=== PATIENT | male | born 1975 | race Caucasian/White ===

== ENCOUNTER 2016-12-22 14:36 | Outpatient (CLI) ==
[2016-10-15 16:04] VITALS: BMI 36.9
--- NOTE | 2016-12-22 16:10 | DI ---
EXAM: CHEST FRONTAL AND LATERAL VIEWS HISTORY: Acute bronchitis. COMPARISON: None FINDINGS: Heart size and mediastinal contour within normal limits. No acute infiltrates. Tiffani l vascularity with no pleural fluid or pneumothorax. The bony thorax has no acute finding. IMPRESSION: No acute process.
== END 2016-12-22 14:37 | disposition home or self-care (01) ==
LOC: RAD 14:36
PROVIDERS: ATTEND Internal Medicine
DX: J20.9 Acute bronchitis, unspecified (principal)

== ENCOUNTER 2017-10-31 13:30 | Outpatient (CLI) ==
[2016-10-15 16:04] VITALS: BMI 36.9
--- NOTE | 2017-10-31 14:21 | DI ---
EXAM: LEFT KNEE. HISTORY: Left knee pain FINDINGS / IMPRESSION: Left knee four view. No comparison. The joints appear normal. No osteoarthritis or joint effusion. There is chronic fragmentation/ irregularity of the anterior tibial tuberosity. This could be sympto matic. Soft tissues were within normal limits.
== END 2017-10-31 13:31 | disposition home or self-care (01) ==
LOC: RAD 13:30
PROVIDERS: ATTEND Internal Medicine
DX: M25.562 Pain in left knee (principal)

== ENCOUNTER 2017-11-23 09:00 | Outpatient (CLI) ==
[2016-10-15 16:04] VITALS: BMI 36.9
--- NOTE | 2017-11-23 12:04 | MRI ---
EXAM: MRI of the left knee without contrast COMPARISON: Left knee radiographs 10/31/2017. HISTORY: Left knee pain with clinical concern for a torn meniscus. TECHNIQUE: Multiplanar noncontrast MR images of the left knee were acquired using a 1.2 Calli magnet . FINDINGS: The medial meniscus is intact. There is some intrasubstance degeneration of the lateral m eniscus with question of minimal degenerative fraying of the free edge of the posterior horn. The me niscus is otherwise intact without a discrete surfacing tear. Thinning of the anterior cruciate ligament which may represent anatomic variation versus sequela of a chronic sprain/partial tear with some residual intact fibers clearly identified. No abnormal transl ation of the tibia relative to the femur. The posterior cruciate ligaments intact. Mild thickening and scarring medial collateral ligament its femoral attachment. The lateral collateral ligament comp ziyad and posterolateral corner ligaments are intact. Marked diffuse patellar tendinosis which is most focused proximally at the patellar attachment without a full-thickness tendon tear. Hypertrophic delonte earance of the tibial tuberosity with well corticated ossification at that site suggesting chronic se quela of Dyer-Schlatter's disease versus sequela of an old avulsion injury. Mild distal quadriceps tendinosis. No significant subluxation of the patella. There is chondromalacia patella. Minimal thinning of the cartilage in the medial compartment. No ev idence of an acute fracture or osteomyelitis. Small joint effusion which is nonspecific. No poplite al cyst or osteochondral body. IMPRESSION: 1. Intrasubstance degeneration of the lateral meniscus with question of minimal degenerative fraying of the free edge. No surfacing meniscal tear. 2. Marked patellar tendinosis without a full-thickness tendon tear or tendon retraction. Mild quadr iceps tendinosis. Hypertrophic appearance and well corticated ossification of the tibial tuberosity which may represent chronic sequela of adhesive capsulitis versus sequela of an old avulsion injury. 3. Mild medial and patellofemoral compartment osteoarthrosis. 4. Small joint effusion. 5. Thinning of the anterior cruciate ligament which may represent normal anatomic variation versus s equela of a chronic sprain/partial tear with intact ligament fibers clearly identified. Correlate wi th physical examination. Chronic sprain with scarring of the medial collateral ligament.
== END 2017-11-23 09:01 | disposition home or self-care (01) ==
LOC: RAD 09:00
PROVIDERS: ATTEND Internal Medicine
DX: M25.562 Pain in left knee (principal)

== ENCOUNTER 2019-02-12 11:00 | Outpatient (RCR) ==
[2016-10-15 16:04] VITALS: BMI 36.9
--- NOTE | 2019-02-05 09:04 | RS.OPPTEV2 ---
Date of Note: 02/02/19 Visit #: 1 Number of visits approved by Insurance: eval + 6 visits Date of Evaluation: 02/02/19 Payer Source: Workman's Comp Date of Onset/Injury/Change in Status: 11/29/17 Surgery Performed?: Yes (Peroneal tendon repair) Date of Procedure: 12/04/18 Treatment Diagnosis: peroneal tendon tear L LE, L ankle pain, joint stiffness History of Condition/Mechanism of Injury:: pt slipped on ice while working and suffered an injury to L ankle on 11/29/17 Was later diagnosed with L peroneal tendon tear. pt underwent L peroneal tendon repair on 12/04/18. pt has been off work since October 2018. Prior Level of Function.....Patient was independent with: ADL's, Self Care, Work /Vocation, Ambulation/Mobility, Community Integration/Access Level of Function: Prior to injury was independent. 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 Functional Limitations: Sleep, Standing, Squatting, Ambulation, Community Access /Integration Current Subjective/complaints:: pt states the MD states that he can gradually work out of wearing the boot and use a lace up brace in his shoe when he feels he is ready. pt states he doesn't feel he is quite ready to try going without the boot. Treatment Side (optional): Left *Precautions: WBAT LLE, no u/s at base of 5th MTP due to metal anchor Medical History Medical History Comments:: GERD, BPH, depression, Surgical History: Lumbar Spine, Tonsillectomy Smoking Status: Never smoker Hx Home Medications: protonix, trilipix, lipitor, zoloft, norco Patient's Goals: decrease pain L ankle and return to work. Pain Assessment - Pain Description Pain Location: L ankle Pain Description: Aching Current Pain Intensity: 4 Other Comments regarding Pain:: pt also c/o back pain since wearing the boot, pt with 6/10 low back pain Functional Outcome Measure LE Functional Scale: 35 - G Codes & Severity Modifier G Codes & Modifier: n/a Source of G Code score: n/a Observation - Observation Inspection: pt noted to have pronation B feet in standing with L worse than R. Incision intact with no open areas or exudate. pt with min erythema with edema noted distal and posterior to incision. Posture: Forward Head, Rounded Shoulders, Decreased Lumbar Lordosis Girth Measurement Lower: L ankle 26cm, forefoot 27.5cm, 10 cm above ankle 27 cm. R ankle 27.6cm, forefoot 27.8cm, 10 cm above 26.5cm Gait - Gait Pattern General Gait Pattern Observation: Antalgic Gait Gait Comments: pt amb without AD with antalgic gait pattern. pt with decreased stance time on LLE. General Range of Motion: BUE WFL's. RLE WFL's. LLE hip and knee WFL's Muscle Strength: BUE 5/5. RLE 5/5. LLE hip flex 5/5, knee flex/ext 4+/5, Ankle ROM: Right WFL's Ankle Muscle Strength: Right WFL's - Left Ankle ROM Left DF with Knee extension: neutral AA Left Plantar Flexion: 36 Left Eversion: 22 Left Inversion: 38 Left Ankle/Foot ROM Limitations: Soft Tissue Tightness, Muscle Weakness, Pain Comments: pt c/o increased pain with ROM. Worse with Inversion/eversion. - Left Ankle Strength Left Dorsiflexion: 3- Fair- Left Plantar flexion: 3- Fair- Left Eversion: 3- Fair- Left Inversion: 3- Fair- Palpation Palpation Findings: Tenderness Comments:: tenderness noted to palpation over area of incision. Sensation - Sensation Right Upper Extremity: Intact/Normal Left Upper Extremity: Intact/Normal Right Lower Extremity: Intact/Normal Left Lower Extremity: Intact/Normal Balance - Sitting Balance Static Sitting Balance: Normal Dynamic Sitting Balance: Normal - Standing Balance Static Standing Balance: Normal Dynamic Standing Balance: Good - Treatment Modality: Ultrasound Parameters/Method Applied: 1.2 w/cm2 x 8 mins Treatment Area: L lat ankle (not in area of 5th metatarsal) Patient Position: Supine Interventions - Exercise/Activities/Manual Therapy Exercises/Activities: pt received gentle AAROM stretching to L ankle as well as performed isometric L ankle DF, PF, inversion, eversion. pt also received retrograde massage to L ankle to decrease edema and decrease scar tissue. Manual Therapy: n/a HOME EXERCISE PROGRAM: pt given written HEP including isometric ankle DF, PF, Inversion, Eversion, gentle towel stretch, - Charges Timed Code Treatment Minutes: 51 Total Treatment Time: 59 Procedures billed for this date of service:: evrosibel grijalva, ex EVALUATION COMPLEXITY LEVEL EVALUATION COMPLEXITY LEVEL: HISTORY: Low, EXAM OF BODY SYSTEMS: Low, CLINICAL PRESENTATION: Low, CLINICAL DECISION MAKING: Low Assessment Assessment: pt presents with L ankle pain with decreased ROM, strength, edema, as well as decreased gait sequencing. pt also with low back pain and muscle guarding. Feel pt will benefit from skilled PT eval for therex for ROM, strengthening, as well as modalities to decrease edema and pain. Patient Education: Home Exercise Program, Education of Plan of Care Rehab Potential: Good Short Term Goals Goal #1: pt independent with initial HEP Goal to be met by: 02/13/19 Goal #2: Pt with decreased pain to < 4/10 Goal to be met by: 02/13/19 Goal #3: Improve ROM L ankle DF 8 PF 38, [id number] Goal to be met by: 02/13/19 Goal #4: Decrease edema L ankle. Goal to be met by: 02/13/19 Long-Term Goals Goal #1: pt report able to amb without walking boot with lace up brace and reg shoe Goal to be met by: 02/23/19 Goal #2: pt report able to perform normal daily activities with less pain Goal to be met by: 02/23/19 Goal #3: ROM L ankle improved to be able to amb with normal heel strike/toe off Goal to be met by: 02/23/19 Goal #4: Improve strength L ankle 4- to 4/5 Goal to be met by: 02/23/19 Plan - Treatment to be Provided Procedures: Therapeutic Exercises, Therapeutic Activity, Manual Therapy, Massage , Patient Education Modalities: Electrical Stimulation, Ultrasound/Phonophoresis, Cryotherapy, Hot Packs - Treatment Plan Frequency: 2 X week Duration: 3 weeks Dates of [place] Goals: 02/23/19 Expiration date of current Insurance Approval:: approved eval +6 visits - Treatment Code (1) Left ankle pain Code(s): M25.572 - PAIN IN LEFT ANKLE AND JOINTS OF LEFT FOOT Qualifiers: Chronicity: chronic Qualified Code(s): M25.572 - Pain in left ankle and joints of left foot; G89.29 - Other chronic pain (2) S/P peroneal tendon repair Code(s): Z98.890 - OTHER SPECIFIED POSTPROCEDURAL STATES (3) Stiffness of left ankle joint Code(s): M25.672 - STIFFNESS OF LEFT ANKLE, NOT ELSEWHERE CLASSIFIED (4) Effusion, left ankle Code(s): M25.472 - EFFUSION, LEFT ANKLE (5) Muscle weakness Code(s): M62.81 - MUSCLE WEAKNESS (GENERALIZED)
--- NOTE | 2019-02-05 16:44 | RS.OPPTDN ---
Subjective Date of Note: 02/05/19 Visit #: 2 Number of visits approved by Insurance: na Date of Evaluation: 02/02/19 Payer Source: Workman's Comp Treatment Diagnosis: peroneal tendon tear L LE, L ankle pain, joint stiffness Current Subjective/complaints:: Patient says it is hard to WB on his R foot being out of the boot. He says he is comfortable with wearing the lace up support around his home, but wants to wear boot in public. He says he continues to notice small pocket of swelling and incisional area is sensitive and tender. He is working on HEP. *Precautions: WBAT LLE, no u/s at base of 5th MTP due to metal anchor Pain Assessment - Pain Description Pain Location: R posterior and distal incision also to distal to lateral malleoli - Treatment Modality: Ultrasound Parameters/Method Applied: continuous @ 1.2 w/cm2 x 5 mins to the posterior incisional area (away from metal), pulsed @ 20% 0.6 w/cm2 x 6 mins to area of swelling (inferior to lateral malleoli) and to the anterior incision or distal portion of the foot Patient Position: Supine - Heat/Cryotherapy Treatment: Cryotherapy (wrapped around the R lateral ankle x 15 mins after therex) Interventions - Exercise/Activities/Manual Therapy Exercises/Activities: pt received gentle AAROM/PROM stretching to L ankle as well as performed isometric L ankle DF, PF, inversion, 2x5. AROM followed in all directions. Total minutes of Exercise: 8 Manual Therapy: Patient received cross friction massage to incision and retrograde massage for swelling Total minutes of Manual Therapy: 8 HOME EXERCISE PROGRAM: pt given written HEP including isometric ankle DF, PF, Inversion, Eversion, gentle towel stretch, - Charges Timed Code Treatment Minutes: 27 Total Treatment Time: 42 Procedures billed for this date of service:: cp, MT, EX, U/s Assessment: Patient has mild tenderness noted along the incision temporarily during u/s. He was surprised that he did not have the discomfort he anticipated with scar tissue massage however. He appeared to geraldine PROM/AAROM better than expected. Swelling decreased slightly with MT and cryotherpay. He should improve with further visits modalities and therex to improve pain, swelling, and ROM. Patient Education: Education of diagnosis, Body/Joint mechanics, Home Exercise Program, Home Safety, Education of Plan of Care Patient demonstrates compliance with HEP?: Yes Short Term Goals Goal #1: pt independent with initial HEP Goal to be met by: 02/13/19 Progress towards Goal:: Progressing Goal #2: Pt with decreased pain to < 4/10 Goal to be met by: 02/13/19 Goal #3: Improve ROM L ankle DF 8 PF 38, [id number] Goal to be met by: 02/13/19 Goal #4: Decrease edema L ankle. Goal to be met by: 02/13/19 Desulfurizer Hand Goals Goal #1: pt report able to amb without walking boot with lace up brace and reg shoe Goal to be met by: 02/23/19 Goal #2: pt report able to perform normal daily activities with less pain Goal to be met by: 02/23/19 Goal #3: ROM L ankle improved to be able to amb with normal heel strike/toe off Goal to be met by: 02/23/19 Goal #4: Improve strength L ankle 4- to 4/5 Goal to be met by: 02/23/19 Plan Dates of Desulfurizer Hand Goals: 02/23/19 Expiration date of current Insurance Approval:: 02/23/19 PLAN: Patient to continue to improve ROM and wean off from boot, increasing WB to allow mor e normal gait pattern.
--- NOTE | 2019-02-07 15:29 | RS.OPPTDN ---
Subjective Date of Note: 02/07/19 Visit #: 3 Number of visits approved by Insurance: na Date of Evaluation: 02/02/19 Payer Source: Workman's Comp Treatment Diagnosis: peroneal tendon tear L LE, L ankle pain, joint stiffness *Precautions: WBAT LLE, no u/s at base of 5th MTP due to metal anchor - Treatment Modality: Ultrasound Parameters/Method Applied: Pulsed @ 0.6 w/cm2 x 12 mins to the L lateral malleoli (swelling pocket) region and along the incision Patient Position: Supine - Heat/Cryotherapy Treatment: Cryotherapy (surrounding the L lateral ankle x 12 mins) Interventions - Exercise/Activities/Manual Therapy Exercises/Activities: pt received gentle AAROM/PROM stretching to L ankle as well as performed isometric L ankle DF, PF, inversion, 2x5. AROM followed in all directions. Total minutes of Exercise: 6 Manual Therapy: Patient received cross friction massage to incision and retrograde massage for swelling Total minutes of Manual Therapy: 8 HOME EXERCISE PROGRAM: pt given written HEP including isometric ankle DF, PF, Inversion, Eversion, gentle towel stretch, - Charges Timed Code Treatment Minutes: 26 Total Treatment Time: 42 Procedures billed for this date of service:: cp, u/s, ex Assessment: Patient continues to demo swelling to just distal to the lateral malleoli, but decreased tenderness at incision. He appears to have improved ROM both A and P and able to resist well through isometrics. Decreased back pain noted through customer care agent earlier this week. Patient Education: Education of diagnosis, Home Exercise Program Patient demonstrates compliance with HEP?: Yes Short Term Goals Goal #1: pt independent with initial HEP Goal to be met by: 02/13/19 Progress towards Goal:: Progressing Goal #2: Pt with decreased pain to < 4/10 Goal to be met by: 02/13/19 Progress towards Goal:: Progressing Goal #3: Improve ROM L ankle DF 8 PF 38, [id number] Goal to be met by: 02/13/19 Progress towards Goal:: Progressing Goal #4: Decrease edema L ankle. Goal to be met by: 02/13/19 Skilled Nursing Goals Goal #1: pt report able to amb without walking boot with lace up brace and reg shoe Goal to be met by: 02/23/19 Goal #2: pt report able to perform normal daily activities with less pain Goal to be met by: 02/23/19 Goal #3: ROM L ankle improved to be able to amb with normal heel strike/toe off Goal to be met by: 02/23/19 Goal #4: Improve strength L ankle 4- to 4/5 Goal to be met by: 02/23/19 Plan Dates of Medical Assistant Per [employer] Goals: 02/23/19 Expiration date of current Insurance Approval:: 02/23/19 PLAN: Continue BIW to improve pain, ROM, and strength to the L ankle.
--- NOTE | 2019-02-12 15:03 | RS.OPPTDN ---
Subjective Date of Note: 02/12/19 Visit #: 4 Number of visits approved by Insurance: 7 Date of Evaluation: 02/02/19 Payer Source: Workman's Comp Treatment Diagnosis: peroneal tendon tear L LE, L ankle pain, joint stiffness Current Subjective/complaints:: Patient says he was able to discontinue wearing her boot last . States PA reported his ankle is healed and iit could improve his back pain. Amanuel states that with having the boot d/c'd and having a chiropractic adjustment seemed to improve his back pain. *Precautions: WBAT LLE, no u/s at base of 5th MTP due to metal anchor - Treatment Modality: Ultrasound Parameters/Method Applied: Pulsed @ 20% 0.6 w/cm2 x 10 mins to the lateral aspect just distal to the lateral malleoli and along incision. Patient Position: Supine - Heat/Cryotherapy Treatment: Cryotherapy (15 mins L ankle after therex) Interventions - Exercise/Activities/Manual Therapy Exercises/Activities: pt received progressive AAROM/PROM stretching to L ankle as well as performed isometric L ankle all directions, 2x5. Began red tband for all motions as well 2x10 reps. AROM followed in all directions. Sitting: EOB wobble board all directions with 5sec static holds each direction. Total minutes of Exercise: 24 Manual Therapy: na HOME EXERCISE PROGRAM: pt given written HEP including isometric ankle DF, PF, Inversion, Eversion, gentle towel stretch, - Charges Timed Code Treatment Minutes: 34 Total Treatment Time: 49 Procedures billed for this date of service:: cp, u/s, ex2 Assessment: Patient presents without boot and amb with good supportive athletic shoes. He appears to have near equal WBing. Decreased back pain noted through customer care representative and recently discontinuing the boot. He is able to geraldine increased ROM and resistive therex using red tband. Swelling has decreased generally through the ankle and forefoot by 1/4 to 1/2 cm per measurements and EV has increased only by 1 degree. DF is now 3-4 degrees beyond neutral with knee extended. Patient Education: Home Exercise Program, Home Safety, Education of Plan of Care Patient demonstrates compliance with HEP?: Yes Short Term Goals Goal #1: pt independent with initial HEP Goal to be met by: 02/13/19 Progress towards Goal:: Progressing Goal #2: Pt with decreased pain to < 4/10 Goal to be met by: 02/13/19 Progress towards Goal:: Progressing Goal #3: Improve ROM L ankle DF 8 PF 38, [id number] Goal to be met by: 02/13/19 Progress towards Goal:: Progressing Goal #4: Decrease edema L ankle. Goal to be met by: 02/13/19 Progress towards Goal:: Progressing Rail Car Unloader Goals Goal #1: pt report able to amb without walking boot with lace up brace and reg shoe Goal to be met by: 02/23/19 Progress towards goal: Partially Met (patient has discontinued boot last week per PA instructions) Goal #2: pt report able to perform normal daily activities with less pain Goal to be met by: 02/23/19 Goal #3: ROM L ankle improved to be able to amb with normal heel strike/toe off Goal to be met by: 02/23/19 Goal #4: Improve strength L ankle 4- to 4/5 Goal to be met by: 02/23/19 Plan Dates of Rail Car Unloader Goals: 02/23/19 Expiration date of current Insurance Approval:: 02/23/19 PLAN: Continue with progression of ROM and strength to the L ankle/foot
== END 2019-02-13 23:59 ==
PROVIDERS: ATTEND Orthopaedic Surgery
DX: S86.312D Strain of muscle(s) and tendon(s) of peroneal muscle group at lower leg level, left leg, subsequent encounter (principal); M25.572 Pain in left ankle and joints of left foot; G89.29 Other chronic pain; M25.672 Stiffness of left ankle, not elsewhere classified; M25.472 Effusion, left ankle; M62.81 Muscle weakness (generalized); Z98.890 Other specified postprocedural states

== ENCOUNTER 2019-03-15 13:00 | Outpatient (RCR) ==
[2016-10-15 16:04] VITALS: BMI 36.9
--- NOTE | 2019-02-14 15:56 | RS.OPPTDN ---
Subjective Date of Note: 02/14/19 Visit #: 5 Number of visits approved by Insurance: eval + 6 visits Date of Evaluation: 02/02/19 Payer Source: Workman's Comp Treatment Diagnosis: peroneal tendon tear L LE, L ankle pain, joint stiffness Current Subjective/complaints:: Patient says he has to drive to [place] for his MD appt tomorrow. He denies having any increase in symptoms due to additional therex last session. He says he wants to return to work, but knows he will not be able to stand and walk around for 8 hours. States he wants to ask his MD about obtaining an order to eval for his back due to walking around in his boot. *Precautions: WBAT LLE, no u/s at base of 5th MTP due to metal anchor - Treatment Modality: Ultrasound Parameters/Method Applied: Pulsed @ 20% 0.6 w/cm2 x 10 mins to the L lateral malleoli region and just distal to area of swelling Patient Position: Supine Interventions - Exercise/Activities/Manual Therapy Exercises/Activities: Patient begins with PROM and gentle stretching to the L foot all directions with more limitation in EV related to more discomfort. Manual isometrics all directions 2x5. Red tband all dir 2x10 reps. Wobble board for all directions x 10 reps. Began stationary bike moderate speed forward and reverse 2 mins ea. Total minutes of Exercise: 24 Manual Therapy: na HOME EXERCISE PROGRAM: pt given written HEP including isometric ankle DF, PF, Inversion, Eversion, gentle towel stretch, - Charges Timed Code Treatment Minutes: 36 Total Treatment Time: 36 Procedures billed for this date of service:: u/s, ex2 Assessment: Patient amb well with discontination of boot with relieving back pain and no provocation of L foot/ankle pain. He is progressing with ROM and edema reduction as he is advancing with tolerance to isometrics and beginning stationary bike. Patient encouraged to use ice at home for mild continued swelling and pain control as well as using it considering his [address] for MD visit. Patient Education: Education of diagnosis, Body/Joint mechanics, Home Exercise Program, Home Safety Patient demonstrates compliance with HEP?: Yes Short Term Goals Goal #1: pt independent with initial HEP Goal to be met by: 02/13/19 Progress towards Goal:: Progressing Goal #2: Pt with decreased pain to < 4/10 Goal to be met by: 02/13/19 Progress towards Goal:: Progressing Goal #3: Improve ROM L ankle DF 8 PF 38, [id number] Goal to be met by: 02/13/19 Progress towards Goal:: Progressing Goal #4: Decrease edema L ankle. Goal to be met by: 02/13/19 Progress towards Goal:: Progressing Half-Way Goals Goal #1: pt report able to amb without walking boot with lace up brace and reg shoe Goal to be met by: 02/23/19 Progress towards goal: Partially Met (patient has discontinued boot last week per PA instructions) Goal #2: pt report able to perform normal daily activities with less pain Goal to be met by: 02/23/19 Progress towards goal: Progressing Goal #3: ROM L ankle improved to be able to amb with normal heel strike/toe off Goal to be met by: 02/23/19 Progress towards goal: Progressing Goal #4: Improve strength L ankle 4- to 4/5 Goal to be met by: 02/23/19 Progress towards goal: Progressing Plan Dates of Half-Way Goals: 02/23/19 Expiration date of current Insurance Approval:: 02/23/19 PLAN: Patient has 2 more sessions remaining with current order. He will be returning to MD tomorrow for follow up. He plans to have his MD add eval and treat for his back related to his foot injury.
--- NOTE | 2019-02-19 14:37 | RS.OPPTDN ---
Subjective Date of Note: 02/19/19 Visit #: 6 Number of visits approved by Insurance: 7 Date of Evaluation: 02/02/19 Payer Source: Workman's Comp Treatment Diagnosis: peroneal tendon tear L LE, L ankle pain, joint stiffness Current Subjective/complaints:: Patient says he has gotten a good report from his ortho last week and indicating he has another order to continue. He states he is improving, but doesn't want to push therapy too much and return to work when he is not ready. States his incision is cloth washer back tender, but he is working on massage at home. *Precautions: WBAT LLE, no u/s at base of 5th MTP due to metal anchor - Treatment Modality: Ultrasound Parameters/Method Applied: Pulsed @ 20% @ 0.6 w/cm2 along incision and just distal to the the lateral malleoli x 11 mins Patient Position: Supine Interventions - Exercise/Activities/Manual Therapy Exercises/Activities: Patient begins with PROM and progressive stretching to the L foot all directions. EV more tolerable. Manual isometrics all directions 2x5. Progressed to green tband all dir 2x10 reps. Wobble board for all directions x 10 reps. Standing with sock and brace on for weight shifting for heel to toe on mahajan air pad, then shoes on for both feet on pad for weight shift L to R then heel to toe x 10 with holding onto bed. Total minutes of Exercise: 24 Manual Therapy: na HOME EXERCISE PROGRAM: pt given written HEP including isometric ankle DF, PF, Inversion, Eversion, gentle towel stretch, - Charges Timed Code Treatment Minutes: 35 Total Treatment Time: 35 Procedures billed for this date of service:: u/s, ex2 Assessment: Patient presents with new order to continue 2-3 x 4 weeks. He demo slightly less swelling at the L lateral malleoli area observably. He geraldine standing and amb better after discharging the boot. He is progressing slowly with ROM and strengthening, but to avoid increase in pain and return to work too early. Patient Education: Education of diagnosis, Home Exercise Program Patient demonstrates compliance with HEP?: Yes Short Term Goals Goal #1: pt independent with initial HEP Goal to be met by: 02/13/19 Progress towards Goal:: Progressing Goal #2: Pt with decreased pain to < 4/10 Goal to be met by: 02/13/19 Progress towards Goal:: Progressing Goal #3: Improve ROM L ankle DF 8 PF 38, [id number] Goal to be met by: 02/13/19 Progress towards Goal:: Progressing Goal #4: Decrease edema L ankle. Goal to be met by: 02/13/19 Progress towards Goal:: Progressing Nursing Home Goals Goal #1: pt report able to amb without walking boot with lace up brace and reg shoe Goal to be met by: 02/23/19 Progress towards goal: Partially Met (patient has discontinued boot last week per PA instructions) Goal #2: pt report able to perform normal daily activities with less pain Goal to be met by: 02/23/19 Progress towards goal: Progressing Goal #3: ROM L ankle improved to be able to amb with normal heel strike/toe off Goal to be met by: 02/23/19 Progress towards goal: Progressing Goal #4: Improve strength L ankle 4- to 4/5 Goal to be met by: 02/23/19 Progress towards goal: Progressing Plan Dates of Backup Sawyer Goals: 02/23/19 Expiration date of current Insurance Approval:: 02/23/19 PLAN: Patient to continue x 1 more session on current order while we are trying to get the next order approved per work comp
--- NOTE | 2019-02-21 16:06 | RS.OPPTDN ---
Subjective Date of Note: 02/21/19 Visit #: 7 Number of visits approved by Insurance: 14 Date of Evaluation: 02/02/19 Payer Source: [email or web address] Treatment Diagnosis: peroneal tendon tear L LE, L ankle pain, joint stiffness Current Subjective/complaints:: Patient says sometimes he feels he is not gaining any in PT, but then he notices he can move his ankle better and overall has less pain. *Precautions: WBAT LLE, no u/s at base of 5th MTP due to metal anchor - Treatment Modality: Ultrasound Parameters/Method Applied: Pulsed @ 0.6 w/cm2 20% x 11 mins near the L lateral malleoli and along the incision Patient Position: Supine Interventions - Exercise/Activities/Manual Therapy Exercises/Activities: Patient begins with PROM and progressive stretching to the L foot all directions. EV continues to be more tolerable. Manual isometrics all directions 2x5. Green tband all dir 2x10 reps. Wobble board for all directions x 10 reps. Standing with sock and brace on for weight shifting for heel to toe on mahajan air pad, then shoes on for both feet on pad for weight shift L to R then heel to toe x 10 with holding onto rail intermittently. Modified forward lunge on L LE using mahajan air pad x 8. Ended with stationary bike x4 mins for/reverse. Total minutes of Exercise: 25 Manual Therapy: na HOME EXERCISE PROGRAM: pt given written HEP including isometric ankle DF, PF, Inversion, Eversion, gentle towel stretch, - Objective Findings Observations,measurements,etc.: MMT for DF, PF, IV 4/5. EV 4-/5 - Charges Timed Code Treatment Minutes: 36 Total Treatment Time: 36 Procedures billed for this date of service:: u/s ex2 Assessment: Patient demo improved toleration to active EV this week demo +2 degrees since last week meeting STG. EV is the only direction he seems to still have difficulty geraldine isometrics, although strength is improving considering his first session witholding manual resistance alltogether. He continues with back pain that is intermittent as well he feels is stemming from his ankle injury and sees a chiropractor for pain reduction. He is amb with increased stance time on the LLE. He appears to have improved tolerance as well with closed chain exercises on even/uneven surfaces without c/o's pain. His work comp approved 9 sessions beginning 02/15/19. We will continue to progress ROM and strength for the LLE. Patient Education: Education of diagnosis, Home Exercise Program, Education of Plan of Care Patient demonstrates compliance with HEP?: Yes Short Term Goals Goal #1: pt independent with initial HEP Goal to be met by: 02/13/19 Progress towards Goal:: Met Goal #2: Pt with decreased pain to < 4/10 Goal to be met by: 02/13/19 Progress towards Goal:: Met Goal #3: Improve ROM L ankle DF 8 PF 38, [id number] Goal to be met by: 02/13/19 Progress towards Goal:: Partially Met Comments:: DF 5, PF 37, EV 25 today Goal #4: Decrease edema L ankle. Goal to be met by: 02/13/19 Progress towards Goal:: Partially Met Internet Designer Goals Goal #1: pt report able to amb without walking boot with lace up brace and reg shoe Goal to be met by: 02/23/19 Progress towards goal: Met (patient has d/c the boot and walking with lace up support and tennis shoe) Goal #2: pt report able to perform normal daily activities with less pain Goal to be met by: 02/23/19 Progress towards goal: Progressing Goal #3: ROM L ankle improved to be able to amb with normal heel strike/toe off Goal to be met by: 02/23/19 Progress towards goal: Progressing Goal #4: Improve strength L ankle 4- to 4/5 Goal to be met by: 02/23/19 Progress towards goal: Progressing Plan Dates of Internet Designer Goals: 02/23/19 Expiration date of current Insurance Approval:: 02/23/19 PLAN: Patient has continuation order and it was also approved through his work comp x 9 sessions as of 02/15/19 for 14 full visits. PT to reassess and extend goals to match further approval dates.
--- NOTE | 2019-02-22 13:57 | RS.PTSUM ---
Progress Note/Summary Date of Note: 02/21/19 Date of Evaluation: 02/02/19 Number of Visits: 7 Number of visits approved by Insurance: Initially 6 +eval, work comp has approved 9 additional visits. Reporting Period for this Progress Note: 02/02/19-02/21/19 Current Complaints/Gains: pt states that he can move his ankle better and has less pain. Objective Measurements/Presentation: pt is amb with increased stance time on LLE. MMT for DF/PF, IV 4/5 EV 4-/5. pt has improved PF 37, DF 5, EV 25 on LLE. pt with continued back pain as well. G Codes: n/a Source of G Code Score: n/a - Short Term Goals Goal #1: pt independent with initial HEP Goal to be met by: 02/13/19 Progress towards Goal:: Met Goal #2: Pt with decreased pain to < 4/10 Goal to be met by: 02/13/19 Progress towards Goal:: Met Goal #3: Improve ROM L ankle DF 8 PF 38, [id number] Goal to be met by: 03/01/19 (date modified) Goal #4: Decrease edema L ankle. Goal to be met by: 02/13/19 Progress towards Goal:: Met - Starchmaker Goals Goal #1: pt report able to amb without walking boot with lace up brace and reg shoe Goal to be met by: 03/16/19 Goal #2: pt report able to perform normal daily activities with less pain Goal to be met by: 03/16/19 Goal #3: ROM L ankle improved to be able to amb with normal heel strike/toe off Goal to be met by: 03/16/19 Goal #4: Improve strength L ankle 4- to 4/5 Goal to be met by: 03/16/19 - Assessment Assessment of Improvement/Progress: pt has met STG 1, 2, 4. Progressing toward remaining goals. pt continues with pain in L ankle as well as decreased ROM and strength. Summary: Patient has made progress towards goals., Patient demonstrates potential to gain increased function with therapy - Plan Plan: Continue Plan of Care Frequency: 2 X week Duration: 4 weeks Dates of Starchmaker Goals: 03/16/19 Expiration date of current Insurance Approval:: n/a
--- NOTE | 2019-02-27 14:32 | RS.OPPTDN ---
Subjective Date of Note: 02/27/19 Visit #: 8 Number of visits approved by Insurance: 9 additional after 02-21-19 Date of Evaluation: 02/02/19 Payer Source: Workman's Comp Treatment Diagnosis: peroneal tendon tear L LE, L ankle pain, joint stiffness Current Subjective/complaints:: Patient progressing ,reports increased aching yesterday due to prolonged sitting ,had to go out of town. *Precautions: WBAT LLE, no u/s at base of 5th MTP due to metal anchor Pain Assessment - Pain Description Pain Location: L ankle Pain Description: Tightness, Dull, Aching - Treatment Modality: Ultrasound Parameters/Method Applied: 10 mins. to lateral aspect of L ankle,@ 1.5 w/cm2, cont. mode Patient Position: Supine Interventions - Exercise/Activities/Manual Therapy Exercises/Activities: 30 mins. multiple reps of prolonged static stretches to L ankle for DF/PF,inversion/eversion,CW/CCW ankle circles.AROM of DF/PF ,inv/ eversion with green t-band ,3/15 reps. each. Total minutes of Exercise: 30 Manual Therapy: na Total minutes of Manual Therapy: 0 HOME EXERCISE PROGRAM: pt given written HEP including isometric ankle DF, PF, Inversion, Eversion, gentle towel stretch, - Charges Timed Code Treatment Minutes: 30 Total Treatment Time: 40 Procedures billed for this date of service:: US,ex 2 Assessment: Patient reports the most discomfort with active eversion of the L ankle,as compared to other motions.He understands to avoid sharp pain with exercises,whether they are strengthening or stretching.We discussed the mechanics of the ankle ,which muscles are stretched or shortened with the eversion vs. inversion.He has slight discomfort with passive inversion at available range. Patient Education: Body/Joint mechanics, Home Exercise Program Patient demonstrates compliance with HEP?: Yes Short Term Goals Goal #1: pt independent with initial HEP Goal to be met by: 02/13/19 Progress towards Goal:: Met Goal #2: Pt with decreased pain to < 4/10 Goal to be met by: 02/13/19 Progress towards Goal:: Met Goal #3: Improve ROM L ankle DF 8 PF 38, [id number] Goal to be met by: 03/01/19 (date modified) Progress towards Goal:: Progressing Goal #4: Decrease edema L ankle. Goal to be met by: 02/13/19 Progress towards Goal:: Met [facility] Goals Goal #1: pt report able to amb without walking boot with lace up brace and reg shoe Goal to be met by: 03/16/19 Progress towards goal: Progressing Goal #2: pt report able to perform normal daily activities with less pain Goal to be met by: 03/16/19 Goal #3: ROM L ankle improved to be able to amb with normal heel strike/toe off Goal to be met by: 03/16/19 Goal #4: Improve strength L ankle 4- to 4/5 Goal to be met by: 03/16/19 Progress towards goal: Progressing Plan Dates of Product Safety Test Engineer Goals: 03/16/19 Expiration date of current Insurance Approval:: 03/16/19 PLAN: Cont. skilled PT to restore full L ankle strength /ROM ,reduce/eliminate pain with ADL's.
--- NOTE | 2019-03-01 14:16 | RS.OPPTDN ---
Subjective Date of Note: 03/01/19 Visit #: 9 Number of visits approved by Insurance: 8 more Date of Evaluation: 02/02/19 Payer Source: Workman's Comp Treatment Diagnosis: peroneal tendon tear L LE, L ankle pain, joint stiffness Current Subjective/complaints:: Patient reports no pain at rest ,but has elevated pain after standing ,approx. 30 -45 mins. *Precautions: WBAT LLE, no u/s at base of 5th MTP due to metal anchor Pain Assessment - Pain Description Pain Location: L ankle Pain Description: Dull, Aching Current Pain Intensity: 0 at rest Other Comments regarding Pain:: 03/26 after BIODEX BALANCE session today - Treatment Modality: Ultrasound Parameters/Method Applied: 10 mins. @ 1.5 w/cm2,continuous mode to lateral aspect and dorsum of L foot/ankle. Patient Position: Supine Interventions - Exercise/Activities/Manual Therapy Exercises/Activities: 35 mins. multiple reps of prolonged static stretches to L ankle for DF/PF,inversion/eversion,,progressed to BIODEX BALANCE SYSTEM for postural stability,limits of stability ,weight shifting ,weight percentages , with platform in static mode ,and level 12. Total minutes of Exercise: 35 Manual Therapy: na HOME EXERCISE PROGRAM: pt given written HEP including isometric ankle DF, PF, Inversion, Eversion, gentle towel stretch, - Charges Timed Code Treatment Minutes: 35 Total Treatment Time: 45 Procedures billed for this date of service:: US,ex 2 Assessment: Patient has elevated painthe longer he stands today on BIODEX BALANCESYSTEM.He reports increased pain in the lateral aspect of the L ankle/ foot with shifting forward and laterally while doing limits of stability.He is aware this position is in close proximity of the anchoring at the 5th MTP joint. Patient Education: Body/Joint mechanics, Home Exercise Program, Home Safety, Activity Modification, Education of Plan of Care Patient demonstrates compliance with HEP?: Yes Short Term Goals Goal #1: pt independent with initial HEP Goal to be met by: 02/13/19 Progress towards Goal:: Met Goal #2: Pt with decreased pain to < 4/10 Goal to be met by: 02/13/19 Progress towards Goal:: Met Goal #3: Improve ROM L ankle DF 8 PF 38, [id number] Goal to be met by: 03/01/19 (date modified) Progress towards Goal:: Progressing Goal #4: Decrease edema L ankle. Goal to be met by: 02/13/19 Progress towards Goal:: Met Group Home Goals Goal #1: pt report able to amb without walking boot with lace up brace and reg shoe Goal to be met by: 03/16/19 Progress towards goal: Progressing Goal #2: pt report able to perform normal daily activities with less pain Goal to be met by: 03/16/19 Goal #3: ROM L ankle improved to be able to amb with normal heel strike/toe off Goal to be met by: 03/16/19 Goal #4: Improve strength L ankle 4- to 4/5 Goal to be met by: 03/16/19 Progress towards goal: Progressing Plan Dates of Small Business Banking Officer Goals: 03/16/19 Expiration date of current Insurance Approval:: 03-16-19 PLAN: Cont. skilled PT to increase the L ankle stability without pain on even/ uneven surfaces.
--- NOTE | 2019-03-05 14:02 | RS.OPPTDN ---
Subjective Date of Note: 03/05/19 Visit #: 10 Number of visits approved by Insurance: 14 Date of Evaluation: 02/02/19 Payer Source: Workman's Comp Treatment Diagnosis: peroneal tendon tear L LE, L ankle pain, joint stiffness *Precautions: WBAT LLE, no u/s at base of 5th MTP due to metal anchor Pain Assessment - Pain Description Pain Location: L ankle Pain Description: Dull, Throbbing Current Pain Intensity: 4/10 Other Comments regarding Pain:: No pain at rest with pain increasing with standing duration - Treatment Modality: Ultrasound Parameters/Method Applied: 10 minutes, @ 1.5 w/cm2, continuous. Decreased intensity to 1.0 w/cm2 due to pt c/o sharp pain distal to lateral maleolus. Patient Position: Supine Interventions - Exercise/Activities/Manual Therapy Exercises/Activities: 35 mins. multiple reps of prolonged static stretches to L ankle for DF/PF,inversion/eversion, RROM ankle DF/PF using green SkyVu Entertainmentand x20 reps , progressed to Seakeeper BALANCE SYSTEM for postural stability with platform in static mode ,and level 12 for 5 min. Total minutes of Exercise: 35 Manual Therapy: na HOME EXERCISE PROGRAM: pt given written HEP including isometric ankle DF, PF, Inversion, Eversion, gentle towel stretch, - Charges Timed Code Treatment Minutes: 45 Total Treatment Time: 50 Procedures billed for this date of service:: US 1, EX 2 Assessment: Patient tolerated exercises well with pain at 4/10 post exercises. Short Term Goals Goal #1: pt independent with initial HEP Goal to be met by: 02/13/19 Progress towards Goal:: Met Goal #2: Pt with decreased pain to < 4/10 Goal to be met by: 02/13/19 Progress towards Goal:: Met Goal #3: Improve ROM L ankle DF 8 PF 38, [id number] Goal to be met by: 03/01/19 (date modified) Progress towards Goal:: Progressing Goal #4: Decrease edema L ankle. Goal to be met by: 02/13/19 Progress towards Goal:: Met [facility] Goals Goal #1: pt report able to amb without walking boot with lace up brace and reg shoe Goal to be met by: 03/16/19 Progress towards goal: Met Goal #2: pt report able to perform normal daily activities with less pain Goal to be met by: 03/16/19 Progress towards goal: Progressing Goal #3: ROM L ankle improved to be able to amb with normal heel strike/toe off Goal to be met by: 03/16/19 Progress towards goal: Progressing Goal #4: Improve strength L ankle 4- to 4/5 Goal to be met by: 03/16/19 Progress towards goal: Progressing Plan Dates of Machine Loader Goals: 03/16/19 Expiration date of current Insurance Approval:: 03/16/19 PLAN: Continue with POC
--- NOTE | 2019-03-07 14:23 | RS.OPPTDN ---
Subjective Date of Note: 03/07/19 Visit #: 11 Number of visits approved by Insurance: 14 Date of Evaluation: 02/02/19 Payer Source: Workman's Comp Treatment Diagnosis: peroneal tendon tear L LE, L ankle pain, joint stiffness Current Subjective/complaints:: Patient says he was hurting during and after his previous session. States that he felt Balance technology trainer will help him gain stability, but it moved too much for him Tuesday. *Precautions: WBAT LLE, no u/s at base of 5th MTP due to metal anchor - Treatment Modality: Ultrasound Parameters/Method Applied: pulsed @ 20% 0.6 w/cm2 x 10 mins along the L lateral incision and just above the distal end of the incision Patient Position: Supine Interventions - Exercise/Activities/Manual Therapy Exercises/Activities: 30 mins. multiple reps of prolonged static stretches to L ankle for DF/PF,inversion/eversion, L ROM ankle DF/PF/IV/EV using green TBand 2 x20 reps, BIODCartCrunch BALANCE SYSTEM for postural stability and Limits of Stability both static and level 12 at easiest level x 4 reps each. Saved info to compare with following visits. Manual Therapy: na HOME EXERCISE PROGRAM: pt given written HEP including isometric ankle DF, PF, Inversion, Eversion, gentle towel stretch, - Charges Timed Code Treatment Minutes: 40 Total Treatment Time: 40 Procedures billed for this date of service:: u/s, neuro1, ex1 Assessment: Patient presents with elevated soreness related to previous visit. He demo less tenderness overall to the incision laterally and does fatigue with balance technology trainer activities. He requires to hold onto bilateral handrails intermittently once activities are switched from static to level 12. No handrail required for any static activity. Patient Education: Education of diagnosis, Body/Joint mechanics, Home Exercise Program, Home Safety, Education of Plan of Care Patient demonstrates compliance with HEP?: Yes Short Term Goals Goal #1: pt independent with initial HEP Goal to be met by: 02/13/19 Progress towards Goal:: Met Goal #2: Pt with decreased pain to < 4/10 Goal to be met by: 02/13/19 Progress towards Goal:: Met Goal #3: Improve ROM L ankle DF 8 PF 38, [id number] Goal to be met by: 03/01/19 (date modified) Progress towards Goal:: Progressing Goal #4: Decrease edema L ankle. Goal to be met by: 02/13/19 Progress towards Goal:: Met [facility] Goals Goal #1: pt report able to amb without walking boot with lace up brace and reg shoe Goal to be met by: 03/16/19 Progress towards goal: Met Goal #2: pt report able to perform normal daily activities with less pain Goal to be met by: 03/16/19 Progress towards goal: Progressing Goal #3: ROM L ankle improved to be able to amb with normal heel strike/toe off Goal to be met by: 03/16/19 Progress towards goal: Progressing Goal #4: Improve strength L ankle 4- to 4/5 Goal to be met by: 03/16/19 Progress towards goal: Progressing Plan Dates of Senior Care Goals: 03/16/19 Expiration date of current Insurance Approval:: 03/16/19 PLAN: continue with progressive therex to the L ankle/foot.
--- NOTE | 2019-03-13 14:29 | RS.OPPTDN ---
Subjective Date of Note: 03/13/19 Visit #: 12 Number of visits approved by Insurance: 3> sessions Date of Evaluation: 02/02/19 Payer Source: Workman's Comp Treatment Diagnosis: peroneal tendon tear L LE, L ankle pain, joint stiffness Current Subjective/complaints:: Patient says if he doesn't do anything, he doesn 't have any pain. He says pain is completely related to his activity. States he remains sore along the incision, although it is less tender since eval. He c /o continued back pain and chiropractor does help, but cannot afford the co- pays. *Precautions: WBAT LLE, no u/s at base of 5th MTP due to metal anchor - Treatment Modality: Ultrasound Parameters/Method Applied: Pulsed @ 20% 0.6 w/cm2 x 12 mins to the L lateral foot along incision and just distal to the lateral malleoli region Patient Position: Supine Interventions - Exercise/Activities/Manual Therapy Exercises/Activities: 30 mins. multiple reps of prolonged static stretches to L ankle for DF/PF,inversion/eversion, L ROM ankle DF/PF/IV/EV progressing to blue TBand 2 x20 reps, Provided blue tband for home use. Kidd air pad for weight shifting L to R and anterior/posterior x 12 reps. Modified SLS holding onto hand rail and not fully able to apply FWB through the L foot approx 10-15 sec' s. Minisquats on large square foam x 10, SLS on same foam as he is able to perform with less difficulty and apply more WBing. Using [employer] step ups bilateral handrails and [place] foam on system leading with the uninvolved LE, then removing foam for involved LE x 10. Ended with treadmill level progressing to 1.6 mph level 2 incline with prompts for heel strike and toe off x 5 mins. Manual Therapy: na HOME EXERCISE PROGRAM: pt given written HEP including isometric ankle DF, PF, Inversion, Eversion, gentle towel stretch, - Charges Timed Code Treatment Minutes: 42 Total Treatment Time: 47 Procedures billed for this date of service:: u/s, ex2 Assessment: Patient has difficulty with geraldine increasing activities with regards to WBing and closed chain. Endurance is limited on treadmill and with step climbing, but adds that he goes up/down 20 steps a day at his home. He demo decreased swelling at the lateral border of the L foot and improved ROM to WFL. Strength is 4+/5 grossly throughout the L foot. Patient Education: Education of diagnosis, Body/Joint mechanics, Home Exercise Program, Home Safety, Education of Plan of Care Patient demonstrates compliance with HEP?: Yes Short Term Goals Goal #1: pt independent with initial HEP Goal to be met by: 02/13/19 Progress towards Goal:: Met Goal #2: Pt with decreased pain to < 4/10 Goal to be met by: 02/13/19 Progress towards Goal:: Met Goal #3: Improve ROM L ankle DF 8 PF 38, [id number] Goal to be met by: 03/01/19 (date modified) Progress towards Goal:: Progressing Goal #4: Decrease edema L ankle. 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 Goals Goal #1: pt report able to amb without walking boot with lace up brace and reg shoe Goal to be met by: 03/16/19 Progress towards goal: Met Goal #2: pt report able to perform normal daily activities with less pain Goal to be met by: 03/16/19 Progress towards goal: Progressing Goal #3: ROM L ankle improved to be able to amb with normal heel strike/toe off Goal to be met by: 03/16/19 Progress towards goal: Progressing Goal #4: Improve strength L ankle 4- to 4/5 Goal to be met by: 03/16/19 Progress towards goal: Progressing Plan Dates of Beveling And Edging Machine Operator Goals: 03/16/19 Expiration date of current Insurance Approval:: 03/16/19 PLAN: Patient discussed with PT about upcoming MD follow up and she will be revising expiration dates according to approved visits per MD on order and work comp which extends into next week. He is to return to Dr. Perry next .
--- NOTE | 2019-03-14 08:33 | RS.PTSUM ---
Progress Note/Summary Date of Note: 03/13/19 Date of Evaluation: 02/02/19 Number of Visits: 12 Number of visits approved by Insurance: initially 6+eval, and then 9 approved. Reporting Period for this Progress Note: 02/02/19-03/13/19 Current Complaints/Gains: pt states that he is doing a little better, however that if he is up for 30-40 mins his foot starts hurting again. He also reports that his back is hurting more and more. Goal dates modified within approval of work comp. G Codes: n/a Source of G Code Score: n/a - Short Term Goals Goal #1: pt independent with initial HEP Goal to be met by: 02/13/19 Progress towards Goal:: Met Goal #2: Pt with decreased pain to < 4/10 Goal to be met by: 02/13/19 Progress towards Goal:: Met Goal #3: Improve ROM L ankle DF 8 PF 38, [id number] Goal to be met by: 03/01/19 (date modified) Progress towards Goal:: Progressing Goal #4: Decrease edema L ankle. Goal to be met by: 02/13/19 Progress towards Goal:: Met - Knife Sharpener Goals Goal #1: pt report able to amb without walking boot with lace up brace and reg shoe Goal to be met by: 03/16/19 Progress towards goal: Met Goal #2: pt report able to perform normal daily activities with less pain Goal to be met by: 03/23/19 Progress towards goal: Progressing Goal #3: ROM L ankle improved to be able to amb with normal heel strike/toe off Goal to be met by: 03/23/19 Progress towards goal: Progressing Goal #4: Improve strength L ankle 4- to 4/5 Goal to be met by: 03/23/19 Progress towards goal: Progressing - Assessment Summary: Patient has made progress towards goals. - Plan Plan: Continue Plan of Care Frequency: 2 X week Duration: 2 weeks Dates of [facility] Goals: 03/23/19 Expiration date of current Insurance Approval:: 03/23/19
--- NOTE | 2019-03-15 14:48 | RS.OPPTDN ---
Subjective Date of Note: 03/15/19 Visit #: 13 Number of visits approved by Insurance: 15 Date of Evaluation: 02/02/19 Payer Source: Workman's Comp Treatment Diagnosis: peroneal tendon tear L LE, L ankle pain, joint stiffness Current Subjective/complaints:: Patient says he can tell that we did increase therapy activities last session. States he does not see any difference or increase in pain without wearing his lace up brace. He says he is noticing improved ability to turn his foot out (EV) and has tried the blue tband at home last night. *Precautions: WBAT LLE, no u/s at base of 5th MTP due to metal anchor - Treatment Modality: Ultrasound Parameters/Method Applied: Pulsed @ 20% 0.6w/cm2 x 12 mins to the L lateral ankle (incision) and along the forefoot, distal to the lateral malleoli Patient Position: Supine Interventions - Exercise/Activities/Manual Therapy Exercises/Activities: 25 mins ex, 8 mins neuro. multiple reps of prolonged static stretches to L ankle for DF/PF,inversion/eversion, L ROM ankle DF/PF/IV/ EV continuing with blue TBand 2 x20 reps, Patient begins on stationary bike forward/retro x 6 mins full revolutions. Began leg press bilateral LEs prompts for good LE alignment and maintain feet equally 30, 45, 60# x 10 reps ea. Tandem walking on balance beam floor tape with difficulty moderately if unable to hold on using railing. He performs intermittently needing to stop and reposition without handrail x 10'. Same floor tape for side stepping, backwards amb with prompts for correct pattern 2x10'. Blue foam pad for minisquats x 10, Kidd air pad for weight shifting L to R and anterior/posterior x 12 reps. Ended with treadmill @ 1.5-1.7 mph progressing up to level 2 incline x 7 mins. Monitoring for proper heel strike and ongoing educ during advancement of incline and speed. Manual Therapy: na HOME EXERCISE PROGRAM: pt given written HEP including isometric ankle DF, PF, Inversion, Eversion, gentle towel stretch, - Charges Timed Code Treatment Minutes: 45 Total Treatment Time: 49 Procedures billed for this date of service:: neuro, ex2, u/s Assessment: Patient demo increased DF allowing for improved heel strike during treadmill today. He is able to geraldine increased speed closely comparing to his normal stride/pace with athletic shoe, no lace up brace. Patient has difficulty performing tandem ambulation without having to hold onto railing or repositioning. He is able to progress to blue tband and leg press up to 60# bilaterally. Prolonged amb beyond the 7 mins produces fatigue only. Weight shifting L to R on kidd air pad produces soreness to the lateral portion of the L foot. He is participating in HEP using blue tbands now. LTG dates were extended to allow for MD follow up next week which will give him 2 additional visits next week, then possibly hold further sessions. Patient Education: Body/Joint mechanics, Home Exercise Program, Home Safety, Education of Plan of Care Patient demonstrates compliance with HEP?: Yes Short Term Goals Goal #1: pt independent with initial HEP Goal to be met by: 02/13/19 Progress towards Goal:: Met Goal #2: Pt with decreased pain to < 4/10 Goal to be met by: 02/13/19 Progress towards Goal:: Met Goal #3: Improve ROM L ankle DF 8 PF 38, [id number] Goal to be met by: 03/01/19 (date modified) Progress towards Goal:: Partially Met Comments:: DF6 degrees, PF met, EV 21 degrees Goal #4: Decrease edema L ankle. Goal to be met by: 02/13/19 Progress towards Goal:: Met News Video Editor Goals Goal #1: pt report able to amb without walking boot with lace up brace and reg shoe Goal to be met by: 03/16/19 Progress towards goal: Met (out lace up brace and athletic shoe) Comments: As of this week, patient is able to perform all PT and home activities with Goal #2: pt report able to perform normal daily activities with less pain Goal to be met by: 03/23/19 Progress towards goal: Progressing Comments: Will specify next session per pt Goal #3: ROM L ankle improved to be able to amb with normal heel strike/toe off Goal to be met by: 03/23/19 Progress towards goal: Progressing Comments: ongoing Goal #4: Improve strength L ankle 4- to 4/5 Goal to be met by: 03/23/19 Progress towards goal: Progressing Comments: Met all motions except EV 4-/5 currently Plan Dates of [facility] Goals: 03/23/19 Expiration date of current Insurance Approval:: 03/23/19 PLAN: Patient to continue BIW next week then follow up with his MD on March 22.
== END 2019-03-16 23:59 ==
PROVIDERS: ATTEND Orthopaedic Surgery
DX: S86.312D Strain of muscle(s) and tendon(s) of peroneal muscle group at lower leg level, left leg, subsequent encounter (principal)

== ENCOUNTER 2020-06-25 15:04 | Observation (INO) ==
[2020-06-25] MEDS ORDERED: SUBLIMAZE IVP STA (15:31)
[2020-06-25] MEDS ORDERED: ZOFRAN 4 MG/2 ML IVP STA (15:31)
--- NOTE | 2020-06-25 15:42 | ED.PDOC ---
General ED Provider: Dr. KIERSTEN JAQUEZ MD Chief Complaint: Abdominal Pain Stated Complaint: 04/25 epigastric pain Time Seen by Physician: 15:42 Information Source: Patient Primary Care Provider: ORI REDDY Nursing and Triage Documentation Reviewed and Agree: Yes Does patient meet sepsis criteria?: No System Inflammatory Response Syndrome: Not Applicable Sepsis Protocol: For patient's 13 years and over: Temp is 96.8 and below OR 101 and greater Pulse >90 BPM Resp >20/minute Acutely Altered Mental Status Are patient's symptoms suggestive of a new infection, such as: -Pneumonia -Skin, Soft Tissue -Endocarditis -UTI -Bone, Joint Infection -Implantable Device -Acute Abdominal Infection -Wound Infection -Meningitis -Blood Stream Catheter Infection -Unknown GI Complaint Exam Abdominal Pain Complaint/Exam Onset: Sudden Duration: 3 hours Symptoms Are: Worse Timing: Constant Initial Severity: Moderate Current Severity: Moderate Location of Pain: Epigastric Radiates To: Reports Back Character: Reports Aching Aggravating: Reports None Alleviating: Reports None Associated Signs and Symptoms: Reports Nausea; Denies Diaphoresis, Fever, Cough, Chest pain, Dizziness, Back pain, Constipation, Blood in stool, Dysuria, Urinary frequency, Decreased urine output, Decreased appetite, Discharge, Vomiting, Diarrhea and Decreased activity Related History: Reports Similar episode (13 years ago, no cause determined) AAA Risk Factors: Reports None Testicular Torsion Risk Factors: Reports None Surgical Obstruction Risk Factors: Reports None Related Surgical History: Reports None Abdominal Findings: Present None Differential Diagnoses: Pancreatitis, GB and PUD Quality Indicators for AMI: ASA Given if indicated (patient advised not to use aspirin products due to kidney function) Review of Systems Review Of Systems Constitutional: Reports No symptoms Eyes: Reports No symptoms Ears, Nose, Mouth, Throat: Reports No symptoms Respiratory: Reports No symptoms Cardiac: Reports Chest pain (lower sternal pain) GI: Reports Abdominal pain and Nausea : Reports No symptoms Musculoskeletal: Reports No symptoms and Back pain (history of back pain in the past) Skin: Reports No symptoms Neurological: Reports No symptoms Endocrine: Reports No symptoms Hematologic/Lymphatic: Reports No symptoms All Other Systems: Reviewed and Negative [facility] Social History Smoking and tobacco status: Never smoker Physical Exam Physical Exam Appearance: Reports Ill-appearing Pain Distress: Moderate Eyes: Reports JIM, EOMI and Conjunctiva clear ENT: Reports Ears normal and Nose normal Neck: Supple Respiratory: Reports Airway patent and Respirations nonlabored Cardiovascular: Reports RRR and Pulses normal GI/: Reports Soft and Nontender; Denies No Organomegaly, Mass, Hepatomegaly and Splenomegaly Musculoskeletal: Reports Normal strength Skin: Reports Warm and Dry Neurological: Reports Sensation intact and Motor intact Psychiatric: Reports Affect appropriate and Mood appropriate Re-Evaluation Re-Evaluation Time of Re-Evaluation: 16:19 Status: Unchanged Vital Signs Stable: Yes Pain Level: patient states he has had no pain relief after Fentanyl 50mcg Additional Comments: patient may have narcotic tolerance, will dose hydromorphone 1mg IV Physician Notification Case Discussed Physician Notified: Dr. Reddy Time of Notification: 17:45 Critical Care Note Critical Care Note Total Time (mins): 0 Course Course Hematology/Chemistry: 06/25/20 15:45 06/25/20 15:45 Orders, Labs, Meds: Lab Review 06/25/20 06/25/20 06/25/20 15:45 15:45 17:00 WBC 4.74 RBC 5.55 Hgb 13.5 L Hct 42.8 MCV 77.1 L MCH 24.3 L MCHC 31.5 L RDW Coeff of Zafar 14.2 Plt Count 198 Immature Gran % (Auto) 0.2 Neut % (Auto) 52.9 Lymph % (Auto) 34.4 [place] % (Auto) 8.9 Eos % (Auto) 3.2 Baso % (Auto) 0.4 Neut # (Auto) 2.5 Lymph # (Auto) 1.6 [place] # (Auto) 0.4 Eos # (Auto) 0.2 Baso # (Auto) 0.0 Immature Gran # (Auto) 0.0 Sodium 138.3 Potassium 3.93 Chloride 104.5 Carbon Dioxide 29.9 Anion Gap 7.83 BUN 9.3 Creatinine 1.62 H Estimated GFR (MDRD) 47.00 BUN/Creatinine Ratio 5.74 Glucose 155.6 H Calcium 9.74 Total Bilirubin 0.45 AST 48.3 ALT 57.6 H Alkaline Phosphatase 42.0 Troponin I < 0.012 Total Protein 6.73 Albumin 4.26 Globulin 2.47 Albumin/Globulin Ratio 1.72 Lipase 262.5 Urine Color Yellow Urine Clarity Clear Urine pH 6.5 Ur Specific [place] 1.025 Urine Protein Negative Urine Glucose (UA) Negative Urine Ketones Negative Urine Blood Negative Urine Nitrite Negative Urine Bilirubin Negative Urine Urobilinogen 1.0 H Ur Leukocyte Esterase Negative Orders Category Date Time Status ADMIT PATIENT INPATIENT .TO MEDSURG (MONITORED BED) ADMISSION 06/25/20 17: 50 Active EKG-(ED ONLY) Stat CARDIO 06/25/20 15:31 Completed ACTIVITY .BR with BRP CARE 06/25/20 17:48 Active INTAKE & OUTPUT Q8HR CARE 06/25/20 17:48 Active NPO REMINDER: IMAGING ONCE CARE 06/25/20 15:35 Completed TELEMETRY MONITORING TELE CARE 06/25/20 17:51 Active VITAL SIGNS Q4HR CARE 06/25/20 17:49 Active CLEAR LIQUID DIET DIETARY 06/25/20 Dinner Ordered ED IV/MEDIPORT/POWERPORT .ONCE EMERGENCY 06/25/20 15:31 Active CBC W/ AUTO DIFF DAILY@0600 LAB 06/26/20 06:00 Ordered CBC W/ AUTO DIFF DAILY@0600 LAB 06/27/20 06:00 Ordered CBC W/ AUTO DIFF Stat LAB 06/25/20 15:45 Completed COMPREHENSIVE METABOLIC PANEL DAILY@0600 LAB 06/26/20 06:00 Ordered COMPREHENSIVE METABOLIC PANEL DAILY@0600 LAB 06/27/20 06:00 Ordered COMPREHENSIVE METABOLIC PANEL Stat LAB 06/25/20 15:45 Completed LIPASE Stat LAB 06/25/20 15:45 Completed TROPONIN I Stat LAB 06/25/20 15:45 Completed URINALYSIS C & S IF INDICATED Stat LAB 06/25/20 17:00 Completed 0.9 % Sodium Chloride [Saline Flush] MEDS 06/25/20 15:31 Active 1 syr IVF PRN PRN Famotidine Inj [Pepcid] MEDS 06/25/20 16:26 Discontinued 20 mg IVP ONCE STA Fentanyl Vial [Sublimaze] MEDS 06/25/20 15:31 Discontinued 50 mcg IVP ONCE STA Hydromorphone HCl [Dilaudid 0.5 mg/0.5 ml Syringe] MEDS 06/25/20 16:26 Discontinued 1 mg IVP ONCE STA Hydromorphone HCl [Dilaudid 1 mg/ml Syringe] MEDS 06/25/20 17:48 Ordered 1 mg IVP Q4HR PRN Mag Hydrox/Al Hydrox/Simeth [Mylanta Susp] MEDS 06/25/20 16:26 Discontinued 30 ml PO ONCE STA Ondansetron HCl/Pf [Zofran 4 mg/2 ml] MEDS 06/25/20 15:31 Discontinued 4 mg IVP ONCE STA Ondansetron HCl/Pf [Zofran 4 mg/2 ml] MEDS 06/25/20 17:48 Ordered 4 mg IVP Q6H PRN Pantoprazole Sodium [Protonix IV] MEDS 06/25/20 21:00 Ordered 40 mg IVP BID Potassium Chloride/D5-0.9%NaCl [D5%-Ns-KCl 20 Meq/l IV MEDS 06/25/20 18:00 Ordered Suzi] 1,000 ml IV 100 mls/hr Sucralfate Susp [Carafate] MEDS 06/25/20 21:00 Ordered 1 gm PO QID RESUSCITATION STATUS Routine OTHERS 06/25/20 17:48 Ordered CHEST, 2 VIEWS PA & LAT Stat RADS 06/25/20 15:[address] ABDOMEN/PELVIS W CONTRAST Stat RADS 06/25/20 15:31 Completed Medications Generic Name Dose Route Start Last Admin Trade Name Freq PRN Reason Stop Dose Admin Hydromorphone HCl 1 mg 06/25/20 17:48 Dilaudid 1 Mg/Ml Syringe IVP Q4HR PRN Abdominal Pain Potassium Chloride/Dextrose/Sod Cl 1,000 mls @ 100 mls/hr 06/25/20 18:00 D5%-Ns-Kcl 20 Meq/L Iv Suzi IV .Q10H LAURA Ondansetron HCl 4 mg 06/25/20 17:48 Zofran 4 Mg/2 Ml IVP Q6H PRN Nausea / Vomiting Pantoprazole Sodium 40 mg 06/25/20 21:00 Protonix Iv IVP BID LAURA Sodium Chloride 1 syr 06/25/20 15:31 Saline Flush IVF PRN PRN To flush IV Sucralfate 1 gm 06/25/20 21:00 Carafate PO QID LAURA Discontinued Medications Generic Name Dose Route Start Last Admin Trade Name Freq PRN Reason Stop Dose Admin Al Hydroxide/Mg Hydroxide 30 ml 06/25/20 16:26 06/25/20 16:34 Mylanta Susp PO 06/25/20 16:27 30 ml ONCE STA Administration Famotidine 20 mg 06/25/20 16:26 06/25/20 16:34 Pepcid IVP 06/25/20 16:27 20 mg ONCE STA Administration Fentanyl Citrate 50 mcg 06/25/20 15:31 06/25/20 15:51 Sublimaze IVP 06/25/20 15:32 50 mcg ONCE STA Administration Hydromorphone HCl 1 mg 06/25/20 16:26 06/25/20 16:34 Dilaudid 0.5 Mg/0.5 Ml Syringe IVP 06/25/20 16:27 1 mg ONCE STA Administration Ondansetron HCl 4 mg 06/25/20 15:31 06/25/20 15:51 Zofran 4 Mg/2 Ml IVP 06/25/20 15:32 4 mg ONCE STA Administration Vital Signs: Temp Pulse Resp BP Pulse Ox 06/25/20 15:04 98.1 F 85 20 169/92 H 96 Discharge Plan Discharge Patient Disposition: PLACED OBSERVATION Discharge Problem: Abdominal pain, acute, epigastric, Lesion of pancreas ED Provider: KIERSTEN JAQUEZ Condition: Good
[2020-06-25 15:48] LABS: BASOPHILS % (AUTO) 0.4 % (0.0-3.0); EOSINOPHILS # (AUTO) 0.2 K/ul (0.0-0.7); EOSINOPHILS % (AUTO) 3.2 % (0.0-7.0); HEMATOCRIT 42.8 % (42.0-52.0); HEMOGLOBIN 13.5 g/dl (14.0-18.0); IMMATURE GRANULOCYTE % (AUTO) 0.2 % (0.0-5.0); LYMPHOCYTES # (AUTO) 1.6 K/uL (0.60-3.4); LYMPHOCYTES % (AUTO) 34.4 (10.0-50.0); MEAN CORPUSCULAR HEMOGLOBIN 24.3 pg (27.0-31.0); MEAN CORPUSCULAR HGB CONC 31.5 (31.8-35.4); MEAN CORPUSCULAR VOLUME 77.1 fl (80.0-94.0); MONOCYTES # (AUTO) 0.4 K/uL (0.4-2.0); MONOCYTES % (AUTO) 8.9 (0-10); NEUTROPHILS # (AUTO) 2.5 K/ul (2.0-6.9); NEUTROPHILS % (AUTO) 52.9 % (42.2-75.2); PLATELET COUNT 198 10^3/uL (140-440); RDW COEFFICIENT OF VARIATION 14.2 % (11.6-14.8); RED BLOOD COUNT 5.55 10^6/ul (4.70-6.10); WHITE BLOOD COUNT 4.74 K/ul (4.2-10.2)
[2020-06-25] MEDS ORDERED: DILAUDID 0.5 MG/0.5 ML SYRINGE IVP STA (16:26)
[2020-06-25] MEDS ORDERED: MYLANTA SUSP PO STA (16:26)
[2020-06-25] MEDS ORDERED: PEPCID IVP STA (16:26)
[2020-06-25 16:29] LABS: ALANINE AMINOTRANSFERASE 57.6 U/L (0-50); ALBUMIN 4.26 g/dL (3.5-5.0); ASPARTATE AMINO TRANSFERASE 48.3 U/L (17-59); BILIRUBIN,TOTAL 0.45 mg/dL (0.2-1.3); BLOOD UREA NITROGEN 9.3 mg/dL (9-20); CALCIUM 9.74 mg/dL (8.4-10.2); CARBON DIOXIDE 29.9 mmol/L (22-30.0); CHLORIDE 104.5 mmol/L (98-107); CREATININE 1.62 mg/dL (0.60-1.10); GLUCOSE 155.6 mg/dL (74-106); LIPASE 262.5 U/L (23-300); POTASSIUM 3.93 mmol/L (3.5-5.1); SODIUM 138.3 mmol/L (134.5-145); TOTAL PROTEIN 6.73 g/dL (6.3-8.2)
[2020-06-25 16:42] LABS: TROPONIN I < 0.012 ng/ml (0.0000-0.120)
[2020-06-25 17:12] LABS: BILIRUBIN,URINE Negative (NEGATIVE); CLARITY,URINE Clear (CLEAR); COLOR,URINE Yellow (YELLOW); GLUCOSE, URINE (UA) Negative (NEGATIVE); KETONES,URINE Negative (NEGATIVE); LEUKOCYTE ESTERASE ,URINE Negative (NEGATIVE); NITRITE,URINE Negative (NEGATIVE); PH,URINE 6.5 (5-9); PROTEIN,URINE Negative (NEGATIVE); URINE, BLOOD Negative (NEGATIVE)
--- NOTE | 2020-06-25 17:12 | DI ---
Exam: Two view chest Xray. Date: 06/25/2020 Comparison: 12/22/2016. History: Pain. Findings: The osseous structures are normal. The lungs are clear. The cardiac silhouette and pulmon andrey vasculature are within normal limits. Impression: No acute intrathoracic findings.
--- NOTE | 2020-06-25 17:22 | CT ---
Exam: CT scan of the abdomen pelvis with IV contrast. Date: 06/25/2020. Comparison: None. HISTORY: Epigastric pain that radiates to the back. TECHNIQUE: Helical scan of the abdomen and pelvis was performed following intravenous contrast. FINDINGS: The lung bases are clear. No acute osseous abnormalities are observed. The spleen and liver have a uniform enhancement. The spleen is enlarged, measuring 19.5 cm. The att enuation of the liver is as low as 23 HU. The gallbladder, stomach and adrenal glands are normal. T here is a 2.3 x 2.7 x 3.2 cm cystic nodule in the tail of the pancreas that may have associated edema in the tail of the pancreas. The body, head and uncinate process are normal. The kidneys have a no rmal enhancement morphology. No calculi or hydronephrosis is seen. There are subcentimeter retroper itoneal and mesenteric lymph nodes. The aorta does not exceed 3 cm. The small bowel and appendix ar e normal. There is a paucity of fecal material in the colon. The pelvic sidewall and bladder are no rmal. There is no free pelvic fluid. Prostate, rectum inguinal regions are normal. Impression: There is a 2.3 x 2.7 x 3.2 cm cystic nodule in the tail of the pancreas that may have as sociated edema in the tail. This may represent a pancreatic neoplasm although a simple pancreatic cy st is also possible.. MRI of the abdomen is recommended for further evaluation. Hepatic steatosis. Splenomegaly.
[2020-06-25] MEDS ORDERED: ZOFRAN 4 MG/2 ML IVP PRN (17:48)
[2020-06-25] MEDS ORDERED: DILAUDID 1 MG/ML SYRINGE IVP PRN (17:48)
[2020-06-25] MEDS: D5%-NS-KCL 20 MEQ/L IV SOL 1,000 ML IV SCH (18:31)
[2020-06-25 18:35] VITALS: BMI 39.9
[2020-06-25] MEDS ORDERED: NORCO 7.5-325 PO PRN (18:43)
[2020-06-25] MEDS: PROTONIX IV IVP SCH (20:44)
[2020-06-25] MEDS ORDERED: FLOMAX PO SCH (21:00)
[2020-06-25] MEDS ORDERED: CARAFATE PO SCH (21:00)
[2020-06-25] MEDS: ZOFRAN 4 MG/2 ML IVP SCH (23:07)
[2020-06-25] MEDS: DILAUDID 1 MG/ML SYRINGE IVP SCH (23:07)
[2020-06-26] MEDS: DILAUDID 1 MG/ML SYRINGE IVP SCH ×7 (01:50→13:34)
[2020-06-26] MEDS: D5%-NS-KCL 20 MEQ/L IV SOL 1,000 ML IV SCH (03:50)
[2020-06-26 05:37] LABS: BASOPHILS % (AUTO) 0.5 % (0.0-3.0); EOSINOPHILS # (AUTO) 0.2 K/ul (0.0-0.7); EOSINOPHILS % (AUTO) 2.7 % (0.0-7.0); HEMATOCRIT 42.8 % (42.0-52.0); HEMOGLOBIN 13.2 g/dl (14.0-18.0); IMMATURE GRANULOCYTE % (AUTO) 0.3 % (0.0-5.0); LYMPHOCYTES # (AUTO) 1.8 K/uL (0.60-3.4); LYMPHOCYTES % (AUTO) 29.5 (10.0-50.0); MEAN CORPUSCULAR HEMOGLOBIN 23.9 pg (27.0-31.0); MEAN CORPUSCULAR HGB CONC 30.8 (31.8-35.4); MEAN CORPUSCULAR VOLUME 77.4 fl (80.0-94.0); MONOCYTES # (AUTO) 0.6 K/uL (0.4-2.0); NEUTROPHILS # (AUTO) 3.4 K/ul (2.0-6.9); PLATELET COUNT 188 10^3/uL (140-440); RDW COEFFICIENT OF VARIATION 14.3 % (11.6-14.8); RED BLOOD COUNT 5.53 10^6/ul (4.70-6.10); WHITE BLOOD COUNT 5.99 K/ul (4.2-10.2)
[2020-06-26] MEDS: ZOFRAN 4 MG/2 ML IVP SCH (05:47)
[2020-06-26 05:53] LABS: ALANINE AMINOTRANSFERASE 51.1 U/L (0-50); ALBUMIN 3.95 g/dL (3.5-5.0); ALKALINE PHOSPHATASE 37.1 U/L (38-126); AMYLASE 89.2 U/L (30-110); ASPARTATE AMINO TRANSFERASE 40.7 U/L (17-59); BILIRUBIN,TOTAL 0.51 mg/dL (0.2-1.3); BLOOD UREA NITROGEN 7.8 mg/dL (9-20); CALCIUM 9.53 mg/dL (8.4-10.2); CARBON DIOXIDE 30.6 mmol/L (22-30.0); CHLORIDE 103.6 mmol/L (98-107); CREATININE 1.46 mg/dL (0.60-1.10); GLUCOSE 90.3 mg/dL (74-106); LIPASE 156.9 U/L (23-300); POTASSIUM 4.12 mmol/L (3.5-5.1); SODIUM 138.7 mmol/L (134.5-145); TOTAL PROTEIN 6.36 g/dL (6.3-8.2)
[2020-06-26] MEDS ORDERED: LEVSIN PO PRN (08:21)
--- NOTE | 2020-06-26 08:47 | PCM.PROG ---
Attending Provider: ATTENDING PROVIDER: Dr. ORI REDDY This patient is seen with Camelia Villa, Nurse Practitioner. DATE OF SERVICE: 06/26/20 SUBJECTIVE: This 44 year old /WHITE M was hospitalized 06/25/20. Epigastric pain has resolved this morning. He has been eating jello and drinking sprite with no problem. The patient had sudden onset of epigastric pain which was not relieved after multiple pain medications. No nausea or vomiting. REVIEW OF SYSTEMS: CONSTITUTIONAL: No night sweats. No fatigue, malaise, lethargy. No fever or chills. HEENT: Eyes: No visual changes. No eye pain. No eye discharge. ENT: No runny nose. No epistaxis. No sinus pain. No odynophagia. No congestion. RESPIRATORY: No cough, no congestion. No hemoptysis. No shortness of breath. CARDIOVASCULAR: No angina symptoms. No CHF symptoms. No atypical chest pain for CAD. No palpitations. No orthopnea.. GASTROINTESTINAL: Epigastric pain. No nausea or vomiting. No diarrhea or constipation. No hematemesis. No hematochezia. GENITOURINARY: No urgency. No frequency. No dysuria. No hematuria. No obstructive symptoms. No discharge. No pain. No significant abnormal bleeding. MUSCULOSKELETAL: No musculoskeletal pain; no joint swelling. NEUROLOGICAL: Awake, alert, oriented to time, place and person. No headache. No neck pain. No syncope. No seizures. No dizziness. PSYCHIATRIC: Not anxious. No depression. No suicidal thoughts. No homicidal thoughts. SKIN: No rash. No lesions. No wounds. ENDOCRINE: No unexplained weight loss. No weight gain. HEMATOLOGIC/LYMPHATIC: No anemia. No purpura. No petechiae. No prolonged or excessive bleeding. No palpable lymph nodes. PHYSICAL EXAMINATION: GENERAL: The patient is awake, alert and oriented, lying/sitting in bed in no distress. VITAL SIGNS: Temperature 97.9 F, Pulse 73, Respiratory Rate 18, BP 133/89, Pulse Ox 96% HEENT: Head normocephalic, atraumatic. Eyes: Extraocular muscles are intact. Pupils are equal, round and reactive to light and accommodation. Ears: No lesions. Nose appeared normal. Throat: No exudate or erythema. NECK: Supple. No JVD, no carotid bruit. No lymphadenopathy or thyromegaly. LUNGS: Clear to auscultation. Percussion note normal. Chest symmetrical. HEART: S1, S2, no S3. No murmurs. No cyanosis or clubbing. No ascites. Pulses: Dorsalis pedis and posterior tibial pulses +1 to +2 both sides. ABDOMEN: Soft. Non-tender. Bowel sounds active. No CVA tenderness. No mass felt. EXTREMITIES: No edema. Full range of motion of all extremities, equal. NEUROLOGIC: No focal deficit. Cranial nerves II through XII are grossly intact. No headache, no double vision or headache. SKIN: Not dry. Intact. Turgor-normal. LYMPHATIC: No palpable lymph nodes/no lymphedema. MUSCULOSKELETAL: Normal joints with no swelling. Muscle tone is normal. LAB REVIEW: 06/26/20 05:18 06/26/20 05:18 06/26/20 05:18: Sodium 138.7, Potassium 4.12, Chloride 103.6, Carbon Dioxide 30.6 H, Anion Gap 8.62, BUN 7.8 L, Creatinine 1.46 H, Estimated GFR (MDRD) 53.00, BUN/Creatinine Ratio 5.34, Glucose 90.3 D, Calcium 9.53, Total Bilirubin 0.51, AST 40.7, ALT 51.1 H, Alkaline Phosphatase 37.1 L, Total Protein 6.36, Albumin 3.95, Globulin 2.41, Albumin/Globulin Ratio 1.63, Amylase 89.2, Lipase 156.9 06/26/20 05:18: WBC 5.99, RBC 5.53, Hgb 13.2 L, Hct 42.8, MCV 77.4 L, MCH 23.9 L , MCHC 30.8 L, RDW Coeff of Zafar 14.3, Plt Count 188, Immature Gran % (Auto) 0.3, Neut % (Auto) 57.0, Lymph % (Auto) 29.5, [place] % (Auto) 10.0, Eos % (Auto) 2.7, Baso % (Auto) 0.5, Neut # (Auto) 3.4, Lymph # (Auto) 1.8, [place] # (Auto) 0.6, Eos # (Auto) 0.2, Baso # (Auto) 0.0, Immature Gran # (Auto) 0.0 06/25/20 17:00: Urine Color Yellow, Urine Clarity Clear, Urine pH 6.5, Ur Specific [place] 1.025, Urine Protein Negative, Urine Glucose (UA) Negative, Urine Ketones Negative, Urine Blood Negative, Urine Nitrite Negative, Urine Bilirubin Negative, Urine Urobilinogen 1.0 H, Ur Leukocyte Esterase Negative 06/25/20 15:45: Sodium 138.3, Potassium 3.93, Chloride 104.5, Carbon Dioxide 29.9, Anion Gap 7.83, BUN 9.3, Creatinine 1.62 H, Estimated GFR (MDRD) 47.00, BUN/Creatinine Ratio 5.74, Glucose 155.6 H, Calcium 9.74, Total Bilirubin 0.45, AST 48.3, ALT 57.6 H, Alkaline Phosphatase 42.0, Troponin I < 0.012, Total Protein 6.73, Albumin 4.26, Globulin 2.47, Albumin/Globulin Ratio 1.72, Lipase 262.5 06/25/20 15:45: WBC 4.74, RBC 5.55, Hgb 13.5 L, Hct 42.8, MCV 77.1 L, MCH 24.3 L , MCHC 31.5 L, RDW Coeff of Zafar 14.2, Plt Count 198, Immature Gran % (Auto) 0.2, Neut % (Auto) 52.9, Lymph % (Auto) 34.4, [place] % (Auto) 8.9, Eos % (Auto) 3.2, Baso % (Auto) 0.4, Neut # (Auto) 2.5, Lymph # (Auto) 1.6, [place] # (Auto) 0.4, Eos # (Auto) 0.2, Baso # (Auto) 0.0, Immature Gran # (Auto) 0.0 ASSESSMENT: Please see below. 1. Epigastric pain likely esophageal spasm. 2. Cyst versus neoplasm on tail of pancreas per CT 3. Chronic kidney disease stage 2-3 4. Obesity 5. Hepatic steatosis. PLAN: 1. Continue Protonix IV 2. Start Levsin 0.25mg PO Q 4 hours PRN 3. Ultrasound of right upper quadrant today 4. Upper GI tomorrow 5. MRI of pancreas as outpatient. Plan and coordination of the patient's care discussed in the presence of Imposer and nurse. SCRIBED BY: NATASHA JOINER, Oyster Preparer scribed while in presence of service performed by Dr. Reddy/Camelia Villa, POWER BARKER OPERATOR on 06/26/20 ([id number])
[2020-06-26] MEDS ORDERED: CLARITIN PO SCH (09:00)
[2020-06-26] MEDS ORDERED: PROTONIX PO SCH (09:00)
[2020-06-26] MEDS ORDERED: TRIGLIDE PO SCH (09:00)
[2020-06-26] MEDS ORDERED: LIPITOR PO SCH (09:00)
[2020-06-26] MEDS ORDERED: MULTIVITAMIN TABLET PO SCH (09:00)
[2020-06-26] MEDS: CARAFATE PO SCH ×2 (09:21→11:24)
[2020-06-26] MEDS: PROTONIX IV IVP SCH (10:13)
[2020-06-26] MEDS ORDERED: NORCO 7.5-325 PO PRN (10:27)
--- NOTE | 2020-06-26 10:37 | PN ---
DATE OF SERVICE: 06/25/20 SUBJECTIVE: The patient was hospitalized through the emergency room with epigastric pain. The pain was rated as 8 on a scale of 1 to 10. CBC with differential, amylase and lipase, scan of the abdomen all were negative for any acute abdominal event or any other obvious cause. He was given GI cocktail a couple of times and Protonix. The patient continued to have pain rated as 2 to 6 on scale of 1 to 10. He is going to get 1 mg Dilaudid q.2hr. I just happened to see him in the hospital around 11 where he was complaining of pain. It is much better with 1 mg Dilaudid nearly 2 hours and is in no distress. He is laughing and cutting up. The patient hasn't lost any weight, in fact, he is gaining weight. The patient's findings on the pancreas, seems to be cystic. Gallbladder looked okay on CT scan. The patient is going to have ultrasound of the gallbladder, upper GI and serum amylase and lipase in the a.m. and chest x-ray with EKG. The patient is stable. TIME SPENT: More than 30 minutes. Plan and coordination of the patient's care discussed in the presence of nurse. ELISA
--- NOTE | 2020-06-26 10:51 | PN ---
DATE OF SERVICE: 06/26/20 SUBJECTIVE: The patient was seen and examined with the nurse practitioner. The patient's pain is much less, epigastric pain. REVIEW OF SYSTEMS: CONSTITUTIONAL: No night sweats. No fatigue, malaise, lethargy. No fever or chills. HEENT: Eyes: No visual changes. No eye pain. No eye discharge. ENT: No runny nose. No epistaxis. No sinus pain. No sore throat. No odynophagia. No congestion. RESPIRATORY: No cough, no congestion. No hemoptysis. No shortness of breath. CARDIOVASCULAR: No angina symptoms. No CHF symptoms. No atypical chest pain for CAD. No palpitations. No PND. No orthopnea. GASTROINTESTINAL: Appetite is improving. No abdominal pain. No nausea or vomiting. No diarrhea or constipation. No hematemesis. No hematochezia. GENITOURINARY: No urgency. No frequency. No dysuria. No hematuria. No obstructive symptoms. No discharge. No pain. No significant abnormal bleeding. MUSCULOSKELETAL: No musculoskeletal pain; no joint swelling. NEUROLOGICAL: No headache. No neck pain. No syncope. No seizures. No dizziness. PSYCHIATRIC: Not anxious. No depression. No suicidal thoughts. No homicidal thoughts. SKIN: No rash. No lesions. No wounds. ENDOCRINE: No unexplained weight loss. No weight gain. HEMATOLOGIC/LYMPHATIC: No anemia. No purpura. No petechiae. No prolonged or excessive bleeding. No palpable lymph nodes. PHYSICAL EXAMINATION: GENERAL: The patient is in much less distress. VITAL SIGNS: V/S are stable. HEENT: Head normocephalic, atraumatic. Eyes: Extraocular muscles are intact. Pupils are equal, round and reactive to light and accommodation. Ears: No lesions. Nose appeared normal. Throat: No exudate or erythema. NECK: Supple. No JVD, no carotid bruit. No lymphadenopathy or thyromegaly. LUNGS: Clear to auscultation. Percussion note normal. Chest symmetrical. HEART: S1, S2, no S3. No murmurs. No cyanosis or clubbing. No ascites. Pulses: Dorsalis pedis and posterior tibial pulses +1 to +2 bilaterally. ABDOMEN: Soft. Nontender. Bowel sounds active. No CVA tenderness. No mass felt. EXTREMITIES: No edema. Full range of motion of all extremities, equal. NEUROLOGIC: No focal deficit. Cranial nerves II through XII are grossly intact. No headache, no double vision or headache. SKIN: Not dry. Intact. Turgor - normal. LYMPHATIC: No palpable lymph nodes/no lymphedema. MUSCULOSKELETAL: Normal joints with no swelling. Muscle tone is normal. LABS: Are all acceptable. The patient declined any EGD or colonoscopy. Strongly advised to stop nonsteroidal and antiinflammatory. He is not to take any street drugs. Likely cause of epigastric pain could be peptic ulcer disease, with pain in duodenum and through to the back. Finding on pancreas will be worked up with GI consult if it could be arranged through his insurance company. CONDITION: Stable. TIME SPENT: More than 30 minutes. Plan and coordination of the patient's care discussed in the presence of nurse. ELISA
[2020-06-26] MEDS ORDERED: ZOFRAN 4 MG/2 ML IVP SCH (12:00)
[2020-06-26 13:22] VITALS: BP 126/71; TEMP 97.5
--- NOTE | 2020-06-27 10:30 | SSS ---
DATE OF SERVICE: 06/25/20 (ADMIT) 06/26/20 (DISCHARGE) REASON FOR CONSULTATION/ADMISSION: Epigastric pain. HISTORY OF PRESENT ILLNESS: 44-year-old male with sudden onset of epigastric pain that radiated to back. Pain times two to three hours and described as sharp, stabbing. REVIEW OF SYSTEMS: CONSTITUTIONAL: No night sweats. No fatigue, malaise, lethargy. No fever or chills. HEENT: Eyes: No visual changes. No eye pain. No eye discharge. ENT: No runny nose. No epistaxis. No sinus pain. No sore throat. No odynophagia. No ear pain. No congestion. RESPIRATORY: No cough, no congestion. No hemoptysis. No shortness of breath. CARDIOVASCULAR: No angina symptoms. No CHF symptoms. No atypical chest pain for CAD. No palpitations. No orthopnea. GASTROINTESTINAL: No abdominal pain. No nausea or vomiting. No diarrhea or constipation. No hematemesis. No hematochezia. GENITOURINARY: No dysuria. No hematuria. No obstructive symptoms. No discharge. No pain. No significant abnormal bleeding. MUSCULOSKELETAL: No musculoskeletal pain. No joint swelling. NEUROLOGICAL: Awake, alert, oriented to time, place and person. No headache. No neck pain. No syncope. No seizures. No dizziness. PSYCHIATRIC: Not anxious. No depression. No suicidal thoughts. No homicidal thoughts. SKIN: No rash. No lesions. No wounds. ENDOCRINE: No unexplained weight loss. No weight gain. HEMATOLOGIC/LYMPHATIC: No anemia. No purpura. No petechiae. No prolonged or excessive bleeding. No palpable lymph nodes. PAST HISTORY: High cholesterol Benign tumor of spinal cord (2009 Fracture left foot 2019 Tonsillectomy 2000 Hepatic steatosis Splenomegaly CKD, Stage 2 to 3 EGD, 2015 ([place]) PERSONAL/FAMILY HISTORY/SOCIAL HISTORY: Single, lives alone. Nonsmoker. Independent with ADLs. Parents are living - "not much contact". PHYSICAL EXAMINATION: GENERAL: The patient is a male, age 44. Height 71 inches, weight 286#. BMI 40.0. VITAL SIGNS: BP 159/97, temperature 97.9, heart rate 71, respiratory rate 16, 97% RA. HEENT: Head normocephalic, atraumatic. Eyes: Extraocular muscles are intact. Pupils are equal, round and reactive to light and accommodation. Ears: No lesions. Nose appeared normal. Throat: No exudate or erythema. NECK: Supple. No JVD, no carotid bruit. No lymphadenopathy or thyromegaly. LUNGS: Clear to auscultation. Percussion note normal. Chest symmetrical. HEART: S1, S2, no S3. No murmurs. No cyanosis or clubbing. No ascites. Pulses: Dorsalis pedis and posterior tibial pulses +1 to +2 bilaterally. ABDOMEN: Soft. No abdominal tenderness or distention. Bowel sounds active. No CVA tenderness. No mass felt. GENITOURINARY: No flank tenderness. EXTREMITIES: No edema. Full range of motion of all extremities, equal. NEUROLOGIC: No focal deficit. Cranial nerves II through XII are grossly intact. No headache, no double vision or headache. SKIN: Not dry. Intact. Turgor - normal. LYMPHATIC: No palpable lymph nodes/no lymphedema. MUSCULOSKELETAL: Normal joints with no swelling. Muscle tone is normal. Old/present records reviewed Office records reviewed. ALLERGIES: NKDA MEDICATIONS: Lipitor Zyrtec Nexium Trilipix Hydrocodone/Acetaminophen MVI Flomax LABS/EKG'S/X-RAY/ECHO/ABG: Hemoglobin 13.5, MCV 77.1, MCH 24.3, MCHC 31.5, creatinine 1.62, glucose 155, altace 57.6, lipase 262.5 (within normal limits). Chest x-ray - nothing acute. CT scan of abdomen/pelvis - hepatic steatosis, splenomegaly. Cystic nodule in tail of pancreas 2.3 x 2 x 7 x 3.2 cm with possible associated edema in tail. The patient ate cheeseburger at lunch with no pain, d/c with no pain. PROGRESS NOTES: See EMR. Case Discussed with Attending Physician: Yes Case Discussed with Family: Yes EDUCATION CARRIED OUT ABOUT: Low residual diet. Avoid NSAIDS, avoid fatty foods. DIAGNOSES: 1. Epigastric pain likely due to peptic ulcer disease vs esophageal spasm. 2. Obesity. 3. Hepatic steatosis. 4. CKD, Stage 3. 5. Cyst on tail of pancreas per CT. RECOMMENDATIONS/PLAN: 1. [place] diet. 2. Outpatient ultrasound of gallbladder and upper GI, 06/27/20 @ 0830. 3. Outpatient MRI with and without abdomen, 07/01/20 @ 0800. 4. Rx Protonix 40 mg b.i.d. 5. Levsin 0.25 mg SL q.4hr p.r.n. pain (epigastric). 6. MD appointment 07/03/20 at 1:15. 7. NPO after midnight the night before all x-rays. TIME SPENT: More than 70 minutes. MTDD
== END 2020-06-26 13:55 | disposition home or self-care (01) ==
LOC: ED 15:04 → MEDSURG A 17:52 → INTOOBSV 17:52 → MEDSURG A 18:10
PROVIDERS: ADMIT Internal Medicine; ATTEND Internal Medicine